=== PATIENT | male | born 1990 | race Caucasian/White ===

== ENCOUNTER → 2017-06-16 | Outpatient (CLI) | payer OTHER ==
--- NOTE | 2017-06-16 15:40 | EXERCISE STRESS ECHO ---
*NOTICE TO RECEIVING [employer] This information is strictly Confidential and protected under [place] law. [place] law prohibits you from making any further disclosure of this information unless further disclosure is expressly permitted by the written consent of the person to whom it pertains or is authorized by law. A general authorization for the release of medical or other information is not sufficient for this purpose. Hospital accepts no responsibility if the information is made available to any other person, INCLUDING THE PATIENT. Interpretation Summary * Name: KENNY MARTINEZ Study Date: 06/16/2017 10:02 AM BP: 147/85 mmHg * Patient Location: [facility] HR: 86 * : 1990 (M/d/yyyy) Gender: Male Height: 69 in * Age: 27 yrs Ethnicity: [place] Weight: 185 lb * Ordering Physician: Milady Gomez * Referring Physician: Milady Gomez D.O. * Performed By: Chrissy Alejandro RDCS * * Reason For Study: SOB, ABNL EKG * BSA: 2.0 m2 * -- Conclusions -- * 1. Normal stress echocardiogram at 13.4 METS and a peak heart rate of greater than 100% predicted maximum. * 2. No exercise-induced chest pain. * 3. No EKG changes. * 4. Baseline echocardiogram notes normal left ventricular systolic function and no significant valvular pathology. Procedure Details * ECHOEX, CPT #28066 Left Ventricle * The left ventricle is normal in size. * There is normal left ventricular wall thickness. * Left ventricular systolic function is normal. * Resting wall motion: Normal. Stress wall motion: Appropriate increase in Left ventricular systolic function and decrease in cavity size. No stress induced segmental wall motion abnormalities. Right Ventricle * The right ventricle is normal size. * The right ventricular systolic function is normal as assessed by tricuspid annular plane systolic excursion (TAPSE) (normal >1.5 cm). Atria * The left atrial size is normal. * Right atrial size is normal. * No ASD detected; PFO is not assessed. Mitral Valve * The mitral valve is normal in structure and function. * There is no mitral valve stenosis. * Significant mitral regurgitation is absent. Tricuspid Valve * The tricuspid valve is normal in structure and function. * There is no tricuspid stenosis. * There is trace tricuspid regurgitation. Aortic Valve * The aortic valve is normal in structure and function. * Aortic stenosis is absent. * No aortic regurgitation is present. Pulmonic Valve * The pulmonary valve is not well seen, but the Doppler examination is normal without significant regurgitation or stenosis. Great Vessels * The aortic root and proximal ascending aorta are normal sized. * The pulmonary artery is not well visualized, but is probably normal size. Pericardium * There is no pericardial effusion. Stress Parameters * Normal baseline electrocardiogram. * Stress ECG: No ST changes. No arrhythmias. * Rest heart rate was '86' BPM. * Rest blood pressure was '147/85' * Maximum heart rate achieved was 203 bpm. * Maximum heart rate was 106 % of maximum age-predicted heart rate. * Maximum blood pressure was '195/63' * Total exercise time was '11:30' * Maximum exercise MET level achieved was '13.40' METS * Maximum treadmill speed was '4.20' miles per hour. * Maximum treadmill elevation was '16.00'% grade. * Exercise was terminated due to 'ACHIEVING TARGET HR' MMode 2D Measurements and Calculations IVSd 1.3 cm IVSs 1.5 cm LVIDd 3.5 cm LVIDs 2.5 cm LVPWd 1.4 cm LVPWs 1.8 cm IVS/LVPW 0.90 FS 30.1 % EDV(Teich) 51.9 ml ESV(Teich) 21.6 ml EF(Teich) 58.4 % EDV(cubed) 44.0 ml ESV(cubed) 15.0 ml EF(cubed) 65.9 % % IVS thick 23.4 % % LVPW thick 25.8 % LV mass(C)d 160.4 grams LV mass(C)dI 80.3 grams/m\S\2 LV mass(C)s 148.1 grams LV mass(C)sI 74.1 grams/m\S\2 SV(Teich) 30.3 ml SI(Teich) 15.2 ml/m\S\2 SV(cubed) 29.0 ml SI(cubed) 14.5 ml/m\S\2 Ao root diam 3.1 cm Ao root area 7.5 cm\S\2 LA dimension 3.0 cm LA/Ao 0.96 LVAd ap4 27.7 cm\S\2 LVLd ap4 8.6 cm EDV(MOD-sp4) 72.9 ml EDV(sp4-el) 75.3 ml LVAs ap4 17.4 cm\S\2 LVLs ap4 8.0 cm ESV(MOD-sp4) 31.6 ml ESV(sp4-el) 32.1 ml EF(MOD-sp4) 56.7 % EF(sp4-el) 57.3 % LVAd ap2 25.9 cm\S\2 LVLd ap2 7.9 cm EDV(MOD-sp2) 69.6 ml EDV(sp2-el) 71.9 ml LVAs ap2 16.2 cm\S\2 LVLs ap2 7.2 cm ESV(MOD-sp2) 31.3 ml ESV(sp2-el) 30.8 ml EF(MOD-sp2) 55.0 % EF(sp2-el) 57.1 % LVLd %diff -8.48 % EDV(MOD-bp) 73.2 ml LVLs %diff -10.37 % ESV(MOD-bp) 31.8 ml EF(MOD-bp) 56.6 % SV(MOD-sp4) 41.4 ml SI(MOD-sp4) 20.7 ml/m\S\2 SV(MOD-sp2) 38.3 ml SI(MOD-sp2) 19.2 ml/m\S\2 SV(MOD-bp) 41.4 ml SI(MOD-bp) 20.7 ml/m\S\2 SV(sp4-el) 43.2 ml SI(sp4-el) 21.6 ml/m\S\2 SV(sp2-el) 41.1 ml SI(sp2-el) 20.6 ml/m\S\2 Doppler Measurements and Calculations MV E max alexa 64.5 cm/sec MV A max alexa 43.8 cm/sec MV E/A 1.5 MV dec time 0.27 sec Ao V2 max 110.9 cm/sec Ao max PG 4.9 mmHg Ao max PG (full) 0.56 mmHg LV V1 max PG 4.4 mmHg LV V1 max 104.3 cm/sec TR max alexa 197.0 cm/sec
== END | disposition home or self-care (01) ==
LOC: C.CPL 09:28
PROVIDERS: ATTEND Family Medicine
DX: R06.02 Shortness of breath (principal); R94.31 Abnormal electrocardiogram [ECG] [EKG]